=== PATIENT | female | born 1975 | race African-American/Black ===

== ENCOUNTER 2020-12-06 19:29 | Inpatient (IN) | payer BC ==
[2020-12-06 19:55] VITALS: BMI 21.9
[2020-12-07] MEDS ORDERED: CHOLECALCIFEROL (VIT D3) 1,000 UNIT (25 MCG) TABLET PO SCH (10:00)
[2020-12-07 13:27] LABS: ALBUMIN 4.1 g/dl (3.4-5.0); CALCIUM 8.6 mg/dl (8.5-10); CREATININE 0.7 mg/dl (0.55-1.3); POTASSIUM 3.9 mmol/L (3.5-5.1)
[2020-12-07 14:14] LABS: HEMATOCRIT 34.6 % (32.4-45.2); MCH 20.9 pg (25.7-33.7); MEAN CELL VOLUME 69.5 fl (80-96); MEAN PLT VOLUME 8.3 fl (7.5-11.1); PLATELET COUNT 166 K/MM3 (134-434); RBC 4.98 M/mm3 (3.60-5.2); WHITE BLOOD COUNT 6.4 K/mm3 (4.0-10.8)
[2020-12-07 14:29] LABS: ADD RBC MORPHOLOGY YES; HEMOGLOBIN 10.4 GM/dl (10.7-15.3)
[2020-12-07 14:34] VITALS: BP 107/66; PULSE 69; TEMP 99
[2020-12-07 15:26] LABS: PLATELET ESTIMATE ADEQUATE
[2020-12-07 15:27] LABS: ANISOCYTOSIS 3+; OVALOCYTE FEW
[2020-12-07] MEDS ORDERED: ATORVASTATIN CA 40 MG TABLET (FP) PO SCH (22:00)
== END 2020-12-07 17:47 | disposition home or self-care (01) | DRG 812 ==
LOC: FER 19:29 → FM/S 20:17 → UNDOADMIN 23:37
PROVIDERS: ADMIT Hospitalist; ATTEND Nurse Practitioner Acute Care
PROC: 30233N1 Transfusion of Nonautologous Red Blood Cells into Peripheral Vein, Percutaneous Approach (ICD-10-PCS; principal; 2020-12-06)
DX: D64.9 Anemia, unspecified (principal); E55.9 Vitamin D deficiency, unspecified
CPT/HCPCS: 36415; 36430; 71045-TC-FY; 80053; 82607; 82728; 83540; 83550; 83735; 84443; 84703; 85025; 86850; 86900; 86901; 86922; 93005; 99285-25; C9803; P9058; U0003

== ENCOUNTER 2021-02-11 06:31 | Day surgery (SDC) | payer BC ==
[2021-02-11] MEDS ORDERED: SODIUM CHLORIDE 250 ML IV ONE (10:30)
[2021-02-11] MEDS ORDERED: FERRIC CARBOXYMALTOSE 750 MG in SODIUM CHLORIDE 250 ML IVPB ONE (11:00)
[2021-02-11 17:40] VITALS: TEMP 98
[2021-02-11 17:41] VITALS: BP 120/77; PULSE 80
== END 2021-02-11 18:05 | disposition home or self-care (01) ==
LOC: JONCNONCHE 06:31
PROVIDERS: ATTEND Internal Medicine Hematology & Oncology
PROC: 3E033GC Introduction of Other Therapeutic Substance into Peripheral Vein, Percutaneous Approach (ICD-10-PCS; principal; 2021-02-11)
DX: D50.9 Iron deficiency anemia, unspecified (principal)
CPT/HCPCS: J1439

== ENCOUNTER 2021-02-18 07:53 | Day surgery (SDC) | payer BC ==
[2021-02-18] MEDS ORDERED: SODIUM CHLORIDE 250 ML IV ONE (10:00)
[2021-02-18] MEDS ORDERED: FERRIC CARBOXYMALTOSE 750 MG in SODIUM CHLORIDE 250 ML IVPB ONE (10:00)
[2021-02-18 18:17] VITALS: TEMP 98.3
[2021-02-18 18:18] VITALS: BP 111/82; PULSE 58
== END 2021-02-18 18:30 | disposition home or self-care (01) ==
LOC: JONCNONCHE 07:53
PROVIDERS: ATTEND Internal Medicine Hematology & Oncology
PROC: 3E033GC Introduction of Other Therapeutic Substance into Peripheral Vein, Percutaneous Approach (ICD-10-PCS; principal; 2021-02-18)
DX: D50.9 Iron deficiency anemia, unspecified (principal)
CPT/HCPCS: 84703; 96365; J1439

== ENCOUNTER 2022-11-24 10:47 | Day surgery (SDC) | payer BC ==
[2022-11-24] MEDS ORDERED: FERRIC CARBOXYMALTOSE 750 MG in SODIUM CHLORIDE 250 ML IVPB ONE (11:30)
[2022-11-24 16:32] VITALS: TEMP 98.2
[2022-11-24 16:37] VITALS: BP 126/75; PULSE 60; RESP 20
== END 2022-11-24 12:40 | disposition home or self-care (01) ==
LOC: JONCNONCHE 10:47
PROVIDERS: ATTEND Thoracic Surgery (Cardiothoracic Vascular Surgery)
PROC: 3E033GC Introduction of Other Therapeutic Substance into Peripheral Vein, Percutaneous Approach (ICD-10-PCS; principal; 2022-11-24)
DX: D50.0 Iron deficiency anemia secondary to blood loss (chronic) (principal)
CPT/HCPCS: 96365; J1439

== ENCOUNTER 2022-12-01 10:56 | Day surgery (SDC) | payer BC ==
[~2022-12-01 10:56] MED LIST: FERRIC CARBOXYMALTOSE 750 MG in SODIUM CHLORIDE 250 ML IVPB ONE
[2022-12-01 15:16] VITALS: RESP 18; TEMP 98.4
[2022-12-01 15:18] VITALS: BP 107/66; PULSE 68
== END 2022-12-01 12:40 | disposition home or self-care (01) ==
LOC: JONCNONCHE 10:56
PROVIDERS: ATTEND Thoracic Surgery (Cardiothoracic Vascular Surgery)
PROC: 3E033GC Introduction of Other Therapeutic Substance into Peripheral Vein, Percutaneous Approach (ICD-10-PCS; principal; 2022-12-01)
DX: D50.0 Iron deficiency anemia secondary to blood loss (chronic) (principal)
CPT/HCPCS: 96365; J1439